=== PATIENT | female | born 1960 | race Caucasian/White ===

== ENCOUNTER 2019-06-12 17:40 | Emergency (ER) | payer BC ==
[2019-06-12] MEDS ORDERED: predniSONE 20 MG TAB ONE (19:02)
== END 2019-06-12 19:05 | disposition home or self-care (01) ==
LOC: BURERS 17:40
DX: J02.8 Acute pharyngitis due to other specified organisms (principal); I10 Essential (primary) hypertension; Z79.899 Other long term (current) drug therapy
CPT/HCPCS: 87804; 99283; J7512